=== PATIENT | male | born 1980 | race American Indian/Alaskan Native ===

== ENCOUNTER 2017-09-23 23:18 | Emergency (ER) | payer BC ==
--- NOTE | 2017-09-24 00:29 | ED PDOC ---
Arrival/HPI - General Historian: Patient - History of Present Illness Time/Duration: Other (see hpi) Context: Home <See Arellano - Last Filed: 09/24/17 02:46> <Lexx Lara - Last Filed: 09/24/17 03:39> - General Chief Complaint: Back Pain Time Seen by Provider: 09/24/17 00:29 - History of Present Illness Narrative History of Present Illness (Text): 09/24/17 00:29 This 36 yo male who denies pmh, presents to this ED c/o right lower back pain x earlier today. Patient stated he tried to left his , when he developed an acute lower back pain. Patient denies sob, cp, abdominal pain, urinary symptoms, dizziness, curran, skin rash, weakness, paresthesias, GI/ incontinence, saddle anesthesia, urinary retention, neck pain, or abnormal gait. (See Arellano ) Past Medical History - Provider Review Nursing Documentation Reviewed: Yes - Psychiatric Hx Substance Use: No - Surgical History Hx Eye Surgery: Yes (salinas implants) <See Arellano - Last Filed: 09/24/17 02:46> Family/Social History - Physician Review Nursing Documentation Reviewed: Yes Family/Social History: Other (noncontributory) Smoking Status: Never Smoked Hx Alcohol Use: No Hx Substance Use: No <See Arellano - Last Filed: 09/24/17 02:46> Allergies/Home Meds <See Arellnao - Last Filed: 09/24/17 02:46> <Lexx Lara - Last Filed: 09/24/17 03:39> Allergies/Adverse Reactions: Allergies phenobarbital Allergy (Verified 09/24/17 00:02) DIZZINESS syncopal episode Review of Systems - Review of Systems Constitutional: Normal. absent: Fatigue, Weight Change, Fevers Eyes: Normal ENT: Normal Respiratory: Normal. absent: SOB, Cough Cardiovascular: Normal. absent: Chest Pain Gastrointestinal: Normal. absent: Abdominal Pain, Nausea, Vomiting Genitourinary Male: Normal. absent: Dysuria, Frequency, Hematuria Musculoskeletal: Back Pain Skin: Normal. absent: Rash Neurological: Normal. absent: Headache, Dizziness, Focal Weakness, Gait Changes , Speech Changes, Facial Droop, Disequilibrium, Seizure Endocrine: Normal Hemo/Lymphatic: Normal Psychiatric: Normal <See Arellano - Last Filed: 09/24/17 02:46> Physical Exam Temperature: Afebrile Blood Pressure: Normal Pulse: Regular Respiratory Rate: Normal Appearance: Positive for: Well-Appearing, Non-Toxic, Comfortable Pain Distress: None Mental Status: Positive for: Alert and Oriented X 3 - Systems Exam Head: Present: Atraumatic, Normocephalic Pupils: Present: PERRL Extroacular Muscles: Present: EOMI Conjunctiva: Present: Normal Mouth: Present: Moist Mucous Membranes Neck: Present: Normal Range of Motion Respiratory/Chest: Present: Clear to Auscultation, Good Air Exchange. No: Respiratory Distress, Accessory Muscle Use Cardiovascular: Present: Regular Rate and Rhythm, Normal S1, S2. No: Murmurs Abdomen: Present: Normal Bowel Sounds. No: Tenderness, Distention, Peritoneal Signs Back: Present: Normal Inspection Upper Extremity: Present: Normal Inspection, Normal ROM. No: Cyanosis, Edema Lower Extremity: Present: Normal Inspection, Normal ROM. No: Edema Neurological: Present: GCS=15, CN II-XII Intact, Speech Normal, Motor Func Grossly Intact, Normal Sensory Function, Normal Cerebellar Funct, Gait Normal, Memory Normal Skin: Present: Warm, Dry, Normal Color. No: Rashes Psychiatric: Present: Alert, Oriented x 3, Normal Insight, Normal Concentration <See Arellano - Last Filed: 09/24/17 02:46> Vital Signs Temp Pulse Resp BP Pulse Ox 09/24/17 02:59 98.8 F 78 18 148/76 100 09/24/17 01:19 98.7 F 88 17 137/89 100 09/23/17 23:54 98.8 F 94 H 18 147/79 99 Medical Decision Making Re-evaluation Time: 02:47 Reassessment Condition: Re-examined, Improved <See Arellano - Last Filed: 09/24/17 02:46> <Lexx Lara - Last Filed: 09/24/17 03:39> ED Course and Treatment: 09/24/17 02:46 Re-evaluation. Patient feels better. Discussed results and plan with patient who expresses understanding. All questions answered and there is agreement with the plan to discharge home with instructions. Patient stable for discharge. Return if symptoms persist or worsen. (See Arellano) - RAD Interpretation Narrative RAD Interpretations (Text): 09/24/17 02:47 L-spine x-rays: No Fx or sublux. (See Arellano) Radiology Orders: 09/24/17 00:37 LS SPINE WITH OBL > 18 YRS OLD [RAD] Stat - Medication Orders Current Medication Orders: Discontinued Medications Cyclobenzaprine HCl (Flexeril) 10 mg PO STAT STA Stop: 09/24/17 00:38 Last Admin: 09/24/17 01:00 Dose: 10 mg Ketorolac Tromethamine (Toradol) 60 mg IM STAT STA Stop: 09/24/17 00:37 Last Admin: 09/24/17 00:59 Dose: [address] [facility] Pain Assessment Document 09/24/17 00:59 AB (Rec: 09/24/17 01:00 [email or web address]) Pain Reassessment Is this a pain reassessment? Yes Sleep Is patient sleeping during reassessment? No Presence of Pain Presence of Pain Yes Pain Scale Used Pain Scale Used Numeric Location Left, Right or Bilateral Right Upper or Lower Lower Pain Location Body Site Back Description Description Constant Intensity of Pain at present 7 Pain Behavior Guarding Aggravating Factors ADL's Alleviating Factors/Management Medication Techniques Alleviating Factors Medication IM Administration Charges Document 09/24/17 00:59 AB (Rec: 09/24/17 01:00 [id number] Injection Site MAR Injection Site Left Deltoid Charges for Administration # of IM Administrations 1 Re-Assess: MAR Pain Assessment Document 09/24/17 01:59 AB (Rec: 09/24/17 02:57 AB [id number]) Pain Reassessment Is this a pain reassessment? Yes Sleep Is patient sleeping during reassessment? No Presence of Pain Presence of Pain No Oxycodone/Acetaminophen (Percocet 5/325 Mg Tab) 1 tab PO STAT STA Stop: 09/24/17 00:38 Last Admin: 09/24/17 01:00 Dose: 1 tab MAR Pain Assessment Document 09/24/17 01:00 AB (Rec: 09/24/17 01:01 AB [email or web address] Pain Reassessment Is this a pain reassessment? No Sleep Is patient sleeping during reassessment? No Presence of Pain Presence of Pain Yes Pain Scale Used Pain Scale Used Numeric Location Left, Right or Bilateral Right Upper or Lower Lower Pain Location Body Site Back Description Description Constant Intensity of Pain at present 7 Aggravating Factors ADL's Changing Position Alleviating Factors/Management Medication Techniques Re-Assess: RODRIGO Pain Assessment Document 09/24/17 02:57 AB (Rec: 09/24/17 02:57 AB [id number]) Pain Reassessment Is this a pain reassessment? Yes Sleep Is patient sleeping during reassessment? No Presence of Pain Presence of Pain No - PA / ORTHOTICS PROSTHETICS TECHNICIAN / Resident Statement /DO has reviewed & agrees with the documentation as recorded. / has examined the patient and agrees with the treatment plan. <Lexx Lara - Last Filed: 09/24/17 03:39> Disposition/Present on Arrival - Present on Arrival Any Indicators Present on Arrival: No History of DVT/PE: No History of Uncontrolled Diabetes: No Urinary Catheter: No History of Decub. Ulcer: No History Surgical Site Infection Following: None - Disposition Have Diagnosis and Disposition been Completed?: Yes Disposition Time: 02:47 Patient Plan: Discharge <See Arellano - Last Filed: 09/24/17 02:46> <Lexx Lara - Last Filed: 09/24/17 03:39> - Disposition Diagnosis: Back pain Disposition: HOME/ ROUTINE Condition: GOOD Discharge Instructions (ExitCare): Low Back Pain in Adults Additional Instructions: Call private doctor for follow up visit in 1-2 days. Take medication as instructed. do not drive for at least 8 hours if you take Valium or Tylenol with codeine. return to [facility] if symptoms worsen. Take medication with food. Good posture, avoid lifting heavy things. Prescriptions: Acetaminophen with Codeine [Tylenol with Codeine #3 Tablet] 1 each PO Q6H PRN # 10 tablet PRN Reason: Pain, Severe (8-10) diaZEpam [Valium] 5 mg PO DAILY #6 tab Naproxen 500 mg PO BID #14 tablet Referrals: [facility] [Outside] - Follow up with primary [facility] [Outside] - Follow up with primary Forms: [employer] (Mauritanian), WORK NOTE
[2017-09-24] MEDS ORDERED: Oxycodone/Acetaminophen 5/325 mg Tab PO STA (00:37)
[2017-09-24 02:17] VITALS: O2SAT 100
[2017-09-24 03:00] VITALS: BP 148/76; PULSE 78; RESP 18; TEMP 98.8
--- NOTE | 2017-09-24 11:24 | RAD ---
PROCEDURE: Radiographs of the Lumbar Spine. HISTORY: pain COMPARISON: No prior. FINDINGS: BONES: Normal alignment. No listhesis. No fracture. DISC SPACES: Unremarkable. OTHER FINDINGS: None. IMPRESSION: Unremarkable radiographs of the lumbar spine.
== END 2017-09-24 02:59 | disposition home or self-care (01) ==
LOC: ED 23:18
DX: M54.5 Low back pain (principal)
CPT/HCPCS: 72110; 96372; 99283; J1885